=== PATIENT | female | born 2005 | race Two or more races ===

== ENCOUNTER 2024-09-08 15:36 | Observation (INO) | payer MEDICAID, SELFPAY ==
[2024-09-08 15:39] VITALS: BMI 32.5
[2024-09-08 15:47] VITALS: BP 105/60; PULSE 86
[2024-09-08 15:48] VITALS: BP 105/60; PULSE 86; RESP 18; RESP 98; TEMP 36.6
--- NOTE | 2024-09-08 16:32 | PD.LDPN ---
Documentation for date of: 09/08/24 OB Labor Progress Note Contractions Monitor mode: External Contraction frequency: none Assessment and Plan Comments: Edouard is a 18yo with SIUP at 26wk presenting to L&D for lack of movement x2 days. She notes no ctx, no lof, no vaginal bleeding. ROS negative other than what was described above. Vitals wnl, afebrile General: well developed, well nourished, no acute distress, conversant Cardiac: normal heart rate Lungs: breathing without distress Abdomen: soft, gravid, non-tender, no rebound or guarding Extremities: no edema BLE NST: reassuring for gestational age with 10x10 accels, no decels, mod ruth [place]: no ctx Bedside ultrasound performed by Dr. Kovacs: SIUP with transverse presentation, +FCA, +FM, posterior placenta, MVP 5cm Assessment: Edouard is a 18yo with SIUP at 26wk with decreased movement. Feeling active FM once in triage. Vitals wnl, benign exam. Reassuring status. MVP 5cm. Plan: -Provided reassurance regarding findings -Continue routine follow up with OBGYN -Discussed return precautions at length including FKCs to start at 28wk Dr. Kovacs
== END 2024-09-08 16:30 | disposition home or self-care (01) ==
PROVIDERS: Admitting Provider Obstetrics & Gynecology; Visit Provider Obstetrics & Gynecology
DX: O36.8120 Decreased fetal movements, second trimester, not applicable or unspecified (principal); Z3A.26 26 weeks gestation of pregnancy
CPT/HCPCS: 59025; 59899

== ENCOUNTER 2024-12-19 06:24 | Inpatient (IN) | payer MEDICAID, SELFPAY ==
[2024-12-19] VITALS (99 sets, daily range): BP systolic 68–171; BP diastolic 37–90; PULSE 75–148; RESP 18–96; TEMP 36.4–36.8; O2SAT 87–100; BMI 35.4; BMI 228.8
--- NOTE | 2024-12-19 06:45 | XR_ITS ---
Examination: Complete OB ultrasound greater than 14 weeks Date and time of exam: December 19, 2024, 0702 hours INDICATIONS: Pelvic contractions beginning 2 hours ago Findings: Viable intrauterine single fetus with single amniotic sac presentation Vertex Cardiac motion 147 bpm Placenta anterior maternal right grade 3 Umbilical cord insertion 3 vessels seen Amniotic fluid index 1.7 cm Cervix 4.3 cm Ovaries obscured by the gestation. Composite estimated gestational age based on BPD, head circumference, abdominal circumference, femur length is 40 weeks 1 day Estimated weight 3870 g. Survey of intracranial anatomy, spinal anatomy, abdominal anatomy, four-chamber heart performed with no abnormalities identified. Impression: Viable intrauterine gestation in vertex presentation Amniotic fluid index 1.7 cm.
[2024-12-19 07:40] LABS: Amphetamine/Metham Scrn,Ur OB Negative (Negative); Benzoylecgonine Screen, Ur OB Negative (Negative); Opiate Screen,Urine OB Negative (Negative); THC Screen,Urine OB Negative (Negative)
[2024-12-19 09:14] LABS: Hepatitis B Surface Antigen Non Reactive (Non React); Rubella, IgG Antibody Reactive (Immune)
[2024-12-19 09:30] LABS: Basophils # (Auto) 0.0 Thou/mm3 (0.0-0.2); Basophils % (Auto) 0 % (0-2.5); Eosinophils # (Auto) 0.0 Thou/mm3 (0.0-0.5); Eosinophils % (Auto) 1 % (0-10); Hematocrit 27.0 % (36.0-46.0); Immature Granulocytes Auto 0.03 Thou/mm3 (0.00-0.00); Lymphocytes # (Auto) 1.4 Thou/mm3 (1.0-4.8); Lymphocytes % (Auto) 21 % (10-50); Mean Corpuscular HGB Conc 31.1 g/dl (31.0-37.0); Mean Corpuscular Hemoglobin 24.6 pg (25.0-35.0); Mean Corpuscular Volume 79 fL (80-100); Monocytes # (Auto) 0.7 Thou/mm3 (0.0-0.8); Monocytes % (Auto) 10 % (0-12); Neutrophils # (Auto) 4.7 Thou/mm3 (1.8-7.7); Neutrophils % (Auto) 68 % (37-80); Nucleated Red Blood Cell # 0.00 Thou/mm3 (0.00-0.00); Nucleated Red Blood Cell % 0 /100 WBC (0); Platelet Count 253 Thou/mm3 (140-440); RDW Standard Deviation 50.0 fL (36.4-46.3); Red Blood Count 3.41 Miln/mm3 (4.00-5.20); White Blood Count 6.9 Thou/mm3 (4.5-11.0)
[2024-12-19 09:33] LABS: Hemoglobin 8.4 g/dL (12.0-16.0)
[2024-12-19 10:08] LABS: Syphilis Nonreactive (Nonreactive)
[2024-12-19] MEDS: RINGERS LACTATED 1000 ML 1,000 ML 100 ML IV ×3 (10:13→19:53)
[2024-12-19] MEDS: ONDANSETRON ODT 4 MG TABRAP PO (11:59)
--- NOTE | 2024-12-19 19:14 | ESHP_ITS ---
Documentation for date of: 12/19/24 OB Labor/Induct. 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 Reports good movement. Denies vaginal bleeding or loss of fluid. Notes mild intermittent contractions every 5?10 minutes. Past Medical History: * Anxiety * Depression Past Surgical History: * None reported Medications: * vitamins * Tylenol PRN * Zofran 4 mg PO q8h PRN nausea Allergies: * NKDA Social History: * Denies tobacco, alcohol, or illicit drug use. * Lives with partner, good social support. Labs: * Blood Type: O+ * Rubella: Immune * GBS: Negative * Hep B: NR * RPR: NR * HIV: NR * GC/CT: Negative * HSV: Negative Review of Systems: Negative for fever, chills, chest pain, SOB, dysuria, or headache. No visual changes or epigastric pain. History of Present Adequate Care: Yes Labs Labs: Negative: RPR, HIV, Chlamydia, Gonorrhea and Group Beta Strep and Unknown: Hepatitis B, Rubella Titre, Herpes Type 1, Herpes Type 2 and Covid-19 Past Medical History Surgical History SURGICAL: Negative Section Meds Home Medications and Allergies Home Medications ?Medication ?Instructions ?Recorded ?Confirmed ?Type ondansetron HCl 4 mg tablet 4 mg PO TID PRN nausea and vomiting 12/19/24 12/19/24 History Allergies Allergy/AdvReac Type Severity Reaction Status Date / Time No Known Allergies Allergy Verified 12/19/24 08:21 OB Exam Physical Exam Vital signs: Temp Pulse Resp BP Pulse Ox O2 Del Method 98.1 F 81 20 140/82 H 100 Room Air 12/19/24 16:01 12/19/24 18:53 12/19/24 16:01 12/19/24 18:53 12/19/24 19:12 12/19/24 16:01 Constitutional Constitutional: no acute distress Routine HEENT Exam Head: Present normocephalic and atraumatic Eye: Present EOMI and PERRL ENT: Present mucous membranes moist Routine Neck Exam Neck: Present supple and trachea midline Routine Cardiovascular Exam Cardiovascular: Present RRR Routine Abdominal Exam Abdominal: Present soft and normoactive bowel sounds Detailed Labor and Delivery Exam Dilation (cm): 1 Effacement (%): 50 Cervix position: posterior station: -3 Consistency: firm Baseline heart rate: 145 Routine Extremities Exam Extremities: Present full ROM Routine Skin Exam Skin: Present intact, dry and warm Routine Neurological Exam Neurological: Present alert, oriented X3 and CN II-XII intact Routine Psychiatric Exam Psychiatric: Present normal affect and normal thought process OB Results Labs 12/19/24 09:05 Labs: Short CBC 12/19/24 Range/Units 09:05 WBC 6.9 (4.5-11.0) Thou/mm3 Hgb 8.4 L (12.0-16.0) g/dL Hct 27.0 L (36.0-46.0) % Plt Count 253 (140-440) Thou/mm3 OB Assessment & Plan Assessment and Plan (1) Active labor at term: Status: Acute Assessment and plan: Plan: * Admit to Labor & Delivery for early labor management. * IV fluids, continuous monitoring. * Pain control per patient preference ? epidural as requested. * Cervidil for cervical ripening, Pitopcin when favorable; anticipate spontaneous vaginal delivery. * Continue routine peripartum monitoring. * Discussed plan of care with patient; questions addressed.
[2024-12-19] MEDS: OXYTOCIN in NS 20 units 20 UNIT/1,000 ML BAG 125 UNIT IV (21:34)
[2024-12-19] MEDS: LIDOCAINE HCL 1% 20 ML VIAL INFL (21:37)
[2024-12-19] MEDS: METHYLERGONOVINE INJ 0.2 MG/ML VIAL IM (21:39)
[2024-12-19] MEDS: fentaNYL CIT INJ 50 mCg/ML AMP 2ML 100 MCG IVP (21:43)
[2024-12-19] MEDS: TRANEXAMIC ACID 1,000 MG IVPB 1,000 MG/100 ML BAG 200 MG IV (21:57)
--- NOTE | 2024-12-19 22:08 | PD.LDDELS ---
Data (Rodriguez) Data Hx Section: No : 1 Term: 0 : 0 Livin Abortions: Spontaneous & Theraputic: 0 Delivery Data (Rodriguez) Delivery Data Delivered by: Akanksha Orozco ( Clinic) Delivery Method Presentation: Vertex
[2024-12-20] VITALS (14 sets, daily range): BP systolic 96–128; BP diastolic 60–90; PULSE 81–101; RESP 16–20; TEMP 36.5–37; O2SAT 97–100
[2024-12-20 00:56] LABS: Basophils # (Auto) 0.0 Thou/mm3 (0.0-0.2); Basophils % (Auto) 0 % (0-2.5); Eosinophils # (Auto) 0.0 Thou/mm3 (0.0-0.5); Eosinophils % (Auto) 0 % (0-10); Hematocrit 25.7 % (36.0-46.0); Immature Granulocytes Auto 0.06 Thou/mm3 (0.00-0.00); Lymphocytes # (Auto) 0.8 Thou/mm3 (1.0-4.8); Lymphocytes % (Auto) 5 % (10-50); Mean Corpuscular HGB Conc 30.4 g/dl (31.0-37.0); Mean Corpuscular Hemoglobin 24.6 pg (25.0-35.0); Mean Corpuscular Volume 81 fL (80-100); Monocytes # (Auto) 0.8 Thou/mm3 (0.0-0.8); Monocytes % (Auto) 5 % (0-12); Neutrophils # (Auto) 14.7 Thou/mm3 (1.8-7.7); Neutrophils % (Auto) 90 % (37-80); Nucleated Red Blood Cell # 0.00 Thou/mm3 (0.00-0.00); Nucleated Red Blood Cell % 0 /100 WBC (0); Platelet Count 291 Thou/mm3 (140-440); RDW Standard Deviation 50.8 fL (36.4-46.3); Red Blood Count 3.17 Miln/mm3 (4.00-5.20); White Blood Count 16.4 Thou/mm3 (4.5-11.0)
[2024-12-20 01:31] LABS: Hemoglobin 7.8 g/dL (12.0-16.0)
[2024-12-20 03:19] LABS: Basophils # (Auto) 0.0 Thou/mm3 (0.0-0.2); Basophils % (Auto) 0 % (0-2.5); Eosinophils # (Auto) 0.0 Thou/mm3 (0.0-0.5); Eosinophils % (Auto) 0 % (0-10); Hematocrit 22.0 % (36.0-46.0); Immature Granulocytes Auto 0.05 Thou/mm3 (0.00-0.00); Lymphocytes # (Auto) 1.0 Thou/mm3 (1.0-4.8); Lymphocytes % (Auto) 7 % (10-50); Mean Corpuscular HGB Conc 30.5 g/dl (31.0-37.0); Mean Corpuscular Hemoglobin 24.5 pg (25.0-35.0); Mean Corpuscular Volume 80 fL (80-100); Monocytes # (Auto) 1.2 Thou/mm3 (0.0-0.8); Monocytes % (Auto) 8 % (0-12); Neutrophils # (Auto) 12.6 Thou/mm3 (1.8-7.7); Neutrophils % (Auto) 85 % (37-80); Nucleated Red Blood Cell # 0.00 Thou/mm3 (0.00-0.00); Nucleated Red Blood Cell % 0 /100 WBC (0); Platelet Count 233 Thou/mm3 (140-440); RDW Standard Deviation 50.4 fL (36.4-46.3); Red Blood Count 2.74 Miln/mm3 (4.00-5.20); White Blood Count 15.0 Thou/mm3 (4.5-11.0)
[2024-12-20 03:21] LABS: Hemoglobin 6.7 g/dL (12.0-16.0)
[2024-12-20 06:56] LABS: Basophils # (Auto) 0.0 Thou/mm3 (0.0-0.2); Basophils % (Auto) 0 % (0-2.5); Eosinophils # (Auto) 0.0 Thou/mm3 (0.0-0.5); Eosinophils % (Auto) 0 % (0-10); Hematocrit 21.0 % (36.0-46.0); Immature Granulocytes Auto 0.05 Thou/mm3 (0.00-0.00); Lymphocytes # (Auto) 1.3 Thou/mm3 (1.0-4.8); Lymphocytes % (Auto) 11 % (10-50); Mean Corpuscular HGB Conc 30.5 g/dl (31.0-37.0); Mean Corpuscular Hemoglobin 24.8 pg (25.0-35.0); Mean Corpuscular Volume 81 fL (80-100); Monocytes # (Auto) 0.7 Thou/mm3 (0.0-0.8); Monocytes % (Auto) 6 % (0-12); Neutrophils # (Auto) 9.0 Thou/mm3 (1.8-7.7); Neutrophils % (Auto) 82 % (37-80); Nucleated Red Blood Cell # 0.00 Thou/mm3 (0.00-0.00); Nucleated Red Blood Cell % 0 /100 WBC (0); Platelet Count 219 Thou/mm3 (140-440); RDW Standard Deviation 50.4 fL (36.4-46.3); Red Blood Count 2.58 Miln/mm3 (4.00-5.20); White Blood Count 11.0 Thou/mm3 (4.5-11.0)
[2024-12-20 07:10] LABS: Hemoglobin 6.4 g/dL (12.0-16.0)
[2024-12-20] MEDS: DOCUSATE SOD 100 MG CAPSULE PO (08:32)
[2024-12-20] MEDS: ONDANSETRON ODT 4 MG TABRAP PO ×2 (08:32→22:27)
[2024-12-20] MEDS: FERRIC SOD GLUC INJ 250 MG in SODIUM CHLORIDE 0.9% 100 ML 120 MG IV ×2 (09:41→20:58)
[2024-12-20] MEDS: RINGERS LACTATED 1000 ML 1,000 ML 100 ML IV (09:41)
--- NOTE | 2024-12-20 12:19 | ESPR_ITS ---
Subjective Subjective Interval history: Delivery type: , vaginal packing was removed today. Minimal soakage. Patient is Latter-day and refused blood transfusion and she is getting IV iron Patient doing well this morning. No acute complaints. Ambulating, tolerating p.o., and voiding without difficulty. HTN/Pre-E screen negative: No CP, SOB, DEJESUS, visual changes, RUQ pain. : Yes Lochia: diminishing Bowel: Flatus + / BM + UOP: Voiding freely Exam Vital Signs Temp Pulse Resp BP Pulse Ox O2 Del Method 98.6 F 82 17 107/72 98 Room Air 12/20/24 08:20 12/20/24 08:20 12/20/24 08:20 12/20/24 08:20 12/20/24 08:20 12/20/24 08:20 Constitutional Constitutional: no acute distress Routine HEENT Exam Head: Present normocephalic and atraumatic Eye: Present EOMI and PERRL ENT: Present mucous membranes moist Routine Neck Exam Neck: Present supple and trachea midline Routine Respiratory Exam Respiratory: Present chest non-tender, lungs clear, normal breath sounds and no resp distress Routine Cardiovascular Exam Cardiovascular: Present RRR Routine Abdominal Exam Abdominal: Present soft and normoactive bowel sounds Routine Extremities Exam Extremities: Present full ROM Routine Skin Exam Skin: Present intact, dry and warm Routine Neurological Exam Neurological: Present alert, oriented X3 and CN II-XII intact Routine Psychiatric Exam Psychiatric: Present normal affect and normal thought process Objective Labs 12/20/24 06:15 Labs: Laboratory Results - last 24 hr 12/19/24 12/19/24 12/19/24 00:05 08:00 09:05 WBC 16.4 H 6.9 D RBC 3.17 L Hgb 7.8 L 8.4 L Hct 25.7 L 27.0 L MCV 81 MCH 24.6 L MCHC 30.4 L RDW Std Deviation 50.8 H Plt Count 291 253 D Neut % (Auto) 90 H Lymph % (Auto) 5 L [place] % (Auto) 5 Eos % (Auto) 0 Baso % (Auto) 0 Neut # (Auto) 14.7 H Lymph # (Auto) 0.8 L [place] # (Auto) 0.8 Eos # (Auto) 0.0 Baso # (Auto) 0.0 Immature Gran # (Auto) 0.06 H Absolute Nucleated RBC 0.00 Immature Gran % 0 Nucleated RBC % 0 Blood Type AB Positive Antibody Screen NEGATIVE Crossmatch See Detail Blood Bank Wristband ID Yes 12/20/24 12/20/24 02:50 06:15 WBC 15.0 H D 11.0 RBC 2.74 L 2.58 L Hgb 6.7 L* D 6.4 L* Hct 22.0 L 21.0 L* MCV 80 81 MCH 24.5 L 24.8 L MCHC 30.5 L 30.5 L RDW Std Deviation 50.4 H 50.4 H Plt Count 233 219 Neut % (Auto) 85 H 82 H Lymph % (Auto) 7 L 11 [place] % (Auto) 8 6 Eos % (Auto) 0 0 Baso % (Auto) 0 0 Neut # (Auto) 12.6 H 9.0 H Lymph # (Auto) 1.0 1.3 [place] # (Auto) 1.2 H 0.7 Eos # (Auto) 0.0 0.0 Baso # (Auto) 0.0 0.0 Immature Gran # (Auto) 0.05 H 0.05 H Absolute Nucleated RBC 0.00 0.00 Immature Gran % 0 1 H Nucleated RBC % 0 0 Blood Type Antibody Screen Crossmatch Blood Bank Wristband ID Assessment & Plan Problem List (1) Active labor at term: Status: Acute Assessment and plan: 1. Continue routine /post-op care 2. Labs reviewed, hemoglobin 6.7. Patient is receiving IV iron 3. Remove dressing/Frazier 4. Encourage to ambulate, shower 5. Encourage PO intake, breast feeding Time Spent With Patient Time: Total time spent is greater than 50% in coordination of care (as documented) at patient's floor/unit and/or counseling patient:
--- NOTE | 2024-12-20 12:20 | PD.LDDELS ---
Data (Rodriguez) Data Hx Section: No : 1 Term: 0 : 0 Livin Abortions: Spontaneous & Theraputic: 0 Delivery Data (Rodriguez) Labor Data Initiation of labor: Augmentation Induction/Augmentation Agent: Cervidil ROM date: 12/19/24 ROM time: 21:30 Amniotic membrane rupture type: Spontaneous Amniotic fluid description: Particulate Meconium Delivery Data Onset of labor date: 12/19/24 Onset of labor time: 19:05 Complete dilation date: 12/19/24 Complete dilation time: 21:24 delivery date: 12/19/24 [place] delivery time: 21:31 Placenta delivery date: 12/19/24 Placenta delivery time: 21:34 Stage 1 total time: Labor - Stage 1 Duration 2 hours and 19 minutes Delivered by: Akanksha Orozco ([facility]) Delivery nurse: Maritza Guevara nurse: Laura NOGUEIRA RN Senior Outside Sales Representative at delivery: No Support person(s) at delivery: MATERNAL MOTHER Other staff at delivery: ROGER FORTE RN Delivery Method Delivery method: Precipitous Vaginal Delivery Presentation: Vertex Anesthesia Type Anesthesia Type: Epidural Placenta Placenta delivery description: Spontaneous cord blood collection: Cord Blood Type Umbilical Cord cord description: 3 Vessels [place] Data (Rodriguez) Data order: 1 's gender: Female Identification band number: [id number] weight (gms): 3545 g Weight (pounds): 7 lbs and 13.0 ozs 1 minute: 8 5 minutes: 9
[2024-12-20] MEDS: ceFAZolin/D5W 2 GM IV 2 GM/100 ML BAG IV ×2 (14:15→22:27)
[2024-12-20] MEDS: BENZO/LANO/ALOE (Dermoplast) 60 GM CAN 1 SPRAY TOP (16:42)
[2024-12-21 04:00] VITALS: BP 99/61; PULSE 82; RESP 18; TEMP 36.7; O2SAT 97
[2024-12-21] MEDS: IBUPROFEN TAB 400 MG TABLET 800 MG PO ×2 (04:24→14:39)
[2024-12-21] MEDS: ceFAZolin/D5W 2 GM IV 2 GM/100 ML BAG IV ×2 (05:51→14:32)
[2024-12-21 07:31] VITALS: BP 98/60; PULSE 78; RESP 18; TEMP 36.8; O2SAT 98
[2024-12-21] MEDS: FERRIC SOD GLUC INJ 250 MG in SODIUM CHLORIDE 0.9% 100 ML 120 MG IV (09:30)
[2024-12-21] MEDS: DOCUSATE SOD 100 MG CAPSULE PO (09:34)
--- NOTE | 2024-12-21 09:52 | PD.LDPPPRG ---
Subjective Subjective Interval history: Patient has no/ complaints Headache no Blurry vision no Chest pain no Palpitations no Shortness of breath no Nausea or vomiting or constipation no Back pain no Dysuria no Dizziness no calf pain no She is voiding spontaneously Passing flatus yes Lochia is getting less Exam Vital Signs Temp Pulse Resp BP Pulse Ox O2 Del Method 98.2 F 78 18 98/60 98 Room Air 12/21/24 07:31 12/21/24 07:31 12/21/24 07:31 12/21/24 07:31 12/21/24 07:31 12/21/24 07:31 Narrative Exam alert x3 chest clear CVS RRR NO thromegaly Uterus is nontender Uterus is firm Just below the umbilicus Bowel sounds present Abdomen soft no hernias noted/no CVAT No calf tenderness Edema Objective Labs 12/21/24 17:46 Labs: Laboratory Results - last 24 hr 12/19/24 08:00 Blood Type AB Positive Antibody Screen NEGATIVE Crossmatch See Detail Blood Bank Wristband ID Yes Assessment & Plan Problem List (1) Active labor at term: Status: Acute (2) PPH ( hemorrhage): Problem details: / Plan discharge after the iron infusion patient is better and she refused blood transfusion due to personal/ yazidism reasons and is taking iron infusion now Status: Acute (3) Vaginal delivery: Problem details: doing well post Day 1 / hb is stable Status: Acute Assessment and plan: follow up in 2 to 3 weeks Time Spent With Patient Time: Total time spent is greater than 50% in coordination of care (as documented) at patient's floor/unit and/or counseling patient:
[2024-12-21 10:56] LABS: Basophils # (Auto) 0.0 Thou/mm3 (0.0-0.2); Basophils % (Auto) 0 % (0-2.5); Eosinophils # (Auto) 0.1 Thou/mm3 (0.0-0.5); Eosinophils % (Auto) 1 % (0-10); Immature Granulocytes Auto 0.11 Thou/mm3 (0.00-0.00); Lymphocytes # (Auto) 1.7 Thou/mm3 (1.0-4.8); Lymphocytes % (Auto) 19 % (10-50); Mean Corpuscular HGB Conc 30.6 g/dl (31.0-37.0); Mean Corpuscular Hemoglobin 24.8 pg (25.0-35.0); Mean Corpuscular Volume 81 fL (80-100); Monocytes # (Auto) 0.6 Thou/mm3 (0.0-0.8); Monocytes % (Auto) 6 % (0-12); Neutrophils # (Auto) 6.7 Thou/mm3 (1.8-7.7); Neutrophils % (Auto) 73 % (37-80); Nucleated Red Blood Cell # 0.03 Thou/mm3 (0.00-0.00); Nucleated Red Blood Cell % 0 /100 WBC (0); Platelet Count 227 Thou/mm3 (140-440); RDW Standard Deviation 51.9 fL (36.4-46.3); Red Blood Count 2.38 Miln/mm3 (4.00-5.20); White Blood Count 9.2 Thou/mm3 (4.5-11.0)
[2024-12-21 11:22] LABS: Hematocrit 19.3 % (36.0-46.0); Hemoglobin 5.9 g/dL (12.0-16.0)
[2024-12-21 11:55] VITALS: BP 102/65; PULSE 90; RESP 17; TEMP 36.8; O2SAT 98
--- NOTE | 2024-12-21 12:26 | PC.NURSE ---
1146: DR KEITA updated on pt. cbc results. Hgb 5.9 Hct 19.[address] KEITA she will order cbc for today at 1600, and cytotec PO.
--- NOTE | 2024-12-21 13:20 | PC.SS ---
ALUM MIXER, Carlee, met with patient [id number] to do initial assessment due to scoring greater than 10 on post- depression screening and being late to care at 18-weeks of . ALUM MIXER introduced herself, role in the agency, reason for visit, and discussed limits of confidentiality. Patient appeared alert and oriented to self, time, place, and situation. Patient appears stated age. Patient made good eye contact. Patient?s attitude appeared pleasant and cooperative. Patient?s behavior appeared ordinary. Patient?s mood appears ordinary. No signs of delusions or hallucinations. This is 19-year-old, , single female who presented to the hospital to deliver her daughter, Ramesh Ro. Patient verified her address and phone number. Patient resides at home with her parents. Patient reported that FOB will not be in the life of her daughter. 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 Patient reported that she is currently receiving SNAP and WIC. Patient declined any history or current substance use. Patient declined any involvement with CWS. Patient declined any domestic violence at home. Patient reported that she has a history of anxiety and depression. Patient reported that she was taking antidepressants; however, she discontinued the medication due to side effects. Patient reported that she was also receiving therapy, but stopped services due to issues with transportation. Patient reported that she re-evaluated her friends and family, moved to her father's house and her life became more stable. Patient denies any history of suicide attempts, 5150 holds. Patient denied any HI, SI. Patient reported that her family will provide emotional and physical support. Patient reported that she started receiving care at her 18th week of gestation. Patient reported that she contacted several OBGYN clinics, but had difficulties obtaining an appointment. Patient reported that after that, she went to all her OB appointments. When medically clear, patient will return home, her family will provide transportation. Patient declined any resources.
[2024-12-21 15:25] VITALS: BP 106/65; PULSE 93; RESP 18; TEMP 37.1; O2SAT 98
--- NOTE | 2024-12-21 15:41 | PC.NURSE ---
Per pt. x1 blood clot when using the restroom. Pt. describes size as smaller than a golf ball.
[2024-12-21 16:38] LABS: Path Review Blood Smear Sent to Pathologist
--- NOTE | 2024-12-21 18:01 | PC.NURSE ---
1800: Per DR. KEITA, call her with 1800 cbc lab draw values when completed.
[2024-12-21 18:15] LABS: Basophils # (Auto) 0.0 Thou/mm3 (0.0-0.2); Basophils % (Auto) 0 % (0-2.5); Eosinophils # (Auto) 0.1 Thou/mm3 (0.0-0.5); Eosinophils % (Auto) 1 % (0-10); Hematocrit 20.3 % (36.0-46.0); Immature Granulocytes Auto 0.12 Thou/mm3 (0.00-0.00); Lymphocytes # (Auto) 1.8 Thou/mm3 (1.0-4.8); Lymphocytes % (Auto) 17 % (10-50); Mean Corpuscular HGB Conc 29.6 g/dl (31.0-37.0); Mean Corpuscular Hemoglobin 24.2 pg (25.0-35.0); Mean Corpuscular Volume 82 fL (80-100); Monocytes # (Auto) 0.7 Thou/mm3 (0.0-0.8); Monocytes % (Auto) 7 % (0-12); Neutrophils # (Auto) 7.7 Thou/mm3 (1.8-7.7); Neutrophils % (Auto) 73 % (37-80); Nucleated Red Blood Cell # 0.03 Thou/mm3 (0.00-0.00); Nucleated Red Blood Cell % 0 /100 WBC (0); Platelet Count 243 Thou/mm3 (140-440); RDW Standard Deviation 51.8 fL (36.4-46.3); Red Blood Count 2.48 Miln/mm3 (4.00-5.20); White Blood Count 10.4 Thou/mm3 (4.5-11.0)
[2024-12-21 18:18] LABS: Hemoglobin 6.0 g/dL (12.0-16.0)
[2024-12-21] MEDS: BENZO/LANO/ALOE (Dermoplast) 60 GM CAN 1 SPRAY TOP (18:19)
--- NOTE | 2024-12-21 18:28 | PC.NURSE ---
1625: DR KEITA called and updated on pt. cbc results Hgb 6.0, Hct 20.3, WBC 10.4. All vitals are within normal limits, pt. is asymptomatic, had one blood clot smaller than a golf ball earlier, fundus is firm, bleeding is scant. Per DR KEITA pt. refuses blood transfusion, and can discharge home.
--- NOTE | 2024-12-21 18:43 | PC.NURSE ---
DR KEITA CALLED. ORDERS RECEIVED TO PLACE DISCHARGE ORDER, INSTRUCT PATIENT TO TAKE OVER THE COUNTER IRON AND TYLENOL PRN FOR PAIN, MIDOL OKAY; FOLLOW UP IN THE OFFICE IN 2-3 WEEKS TO CHECK LAB VALUES/ APPOINTMENT. RN TO GIVE 200MCG CYTOTEC PO NOW BEFORE DISCHARGE.
--- NOTE | 2024-12-21 22:01 | ESDS_ITS ---
DS: Providers Provider Date of admission: 12/19/24 08:37 Primary care physician: Physician No Primary/Family Admitting Provider: Akanksha Orozco MD ([facility]) Attending Provider on Admission: Frandy Carpio MD Consults: 12/19/24 22:17 Referral Routine Comment: Attending Provider on DC: Ne Mir MD Discharging Provider: Ne Mir MD DS: Diagnosis Discharge Diagnosis (1) Vaginal delivery: Status: Acute (2) PPH ( hemorrhage): Status: Acute (3) Anemia: Status: Acute Problem List Completed Was Problem List Reviewed/Reconciled?: Yes Summary/Hosp Course Brief History: The patient is a 19-year-old at 41 weeks and 0 days 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 Reports good movement. Denies vaginal bleeding or loss of fluid. Notes mild intermittent contractions every 5?10 minutes. Past Medical History: * Anxiety * Depression Past Surgical History: * None reported Medications: * vitamins * Tylenol PRN * Zofran 4 mg PO q8h PRN nausea Allergies: * NKDA Social History: * Denies tobacco, alcohol, or illicit drug use. * Lives with partner, good social support. Labs: * Blood Type: O+ * Rubella: Immune * GBS: Negative * Hep B: NR * RPR: NR * HIV: NR * GC/CT: Negative * HSV: Negative Review of Systems: Negative for fever, chills, chest pain, SOB, dysuria, or headache. No visual changes or epigastric pain. Peripartum Data Delivery Method: Normal Vaginal Delivery Laceration Description: see Delivery Summary complications: uterine atony and other (iron infusion as patient refused blood transfusion ) Status at Discharge Functional status at discharge: independent ambulation Overall status at discharge: patient is progressing back to baseline Time Spent with Patient Time attestation: Total time spent providing and/or coordinating discharge services: Time spent: Greater than 30 minutes Exam Vital Signs Temp Pulse Resp BP Pulse Ox O2 Del Method 98.8 F 93 18 106/65 98 Room Air 12/21/24 15:25 12/21/24 15:25 12/21/24 15:25 12/21/24 15:25 12/21/24 15:25 12/21/24 15:25 Narrative Exam alert x3 chest clear CVS RRR NO thromegaly Uterus is nontender Uterus is firm Just below the umbilicus Bowel sounds present Abdomen soft no hernias noted/no CVAT lochia four h club agent No calf tenderness Edema mild Discharge Plan Plan Patient Disposition: HOME (Self Care) Prescriptions/Referrals Prescriptions/Med Rec: No Action ondansetron HCl 4 mg tablet 4 mg PO TID PRN (Reason: nausea and vomiting) Patient Comments: TAKE 1 TABLET BY MOUTH THREE TIMES A DAY NEEDED FOR NAUSEA AND VOMITING Referrals: No Primary/Family,Physician [Primary Care Provider] Patient/Caregiver Discharge Instructions Other Discharge Activity Instructions:: TAKE OVER THE COUNTER IRON AND TYLENOL PRN FOR PAIN, MIDOL OKAY; FOLLOW UP IN THE OFFICE IN 2-3 WEEKS TO CHECK LAB VALUES/ APPOINTMENT. Education Materials: After a Vaginal , After Delivery Concerns, Understanding Depression, Hemorrhage Print Language: Cypriot Stand Alone Forms: Extend Health Info., Patient Portal Info Letter Discharge Order Discharge Orders: Discharge (Routine); Ordered 12/21/24 Ordered By: Ne Mir Planned Discharge Date 12/21/24 (2) PPH ( hemorrhage) Qualifiers: hemorrhage type: unspecified Qualified Code(s): O72.1 - Other immediate hemorrhage (3) Anemia Qualifiers: Other causes of anemia: acute posthemorrhagic
== END 2024-12-21 20:00 | disposition home or self-care (01) | DRG 560 ==
LOC: S4SX 21:42 → S4NX 12-20 00:33
PROVIDERS: Obstetrics & Gynecology; Admitting Provider Obstetrics & Gynecology; Visit Provider Obstetrics & Gynecology
DX: O48.0 Post-term pregnancy (principal); Z37.0 Single live birth; Z3A.41 41 weeks gestation of pregnancy; D62 Acute posthemorrhagic anemia; O72.1 Other immediate postpartum hemorrhage; O77.0 Labor and delivery complicated by meconium in amniotic fluid; O90.81 Anemia of the puerperium; O62.3 Precipitate labor; Z53.1 Procedure and treatment not carried out because of patient's decision for reasons of belief and group pressure
CPT/HCPCS: 36415; 59025; 59409; 76805; 80307; 85025; 86762; 86780; 86850; 86900; 86901; 86923; 87340; 94762; J0689; J0690; J2210; J2590; J2795; J2916; J3010; J3490; J7050; J7120; Q0162; S0191; A9270